=== PATIENT | male | born 1985 | race Two or more races ===

== ENCOUNTER 2017-09-02 22:07 | Emergency (ER) | payer SELFPAY ==
[~2017-09-02] VITALS: Ht 172.7 cm; Wt 77.1 kg
[~2017-09-02 22:07] MED LIST: ADDERAL20 MG ORAL
[2017-09-02 23:10] VITALS: BP 128/90
[2017-09-02] MEDS ORDERED: IBUPROFEN600 MG ORAL (23:13)
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
[2017-09-02 23:20] VITALS: BP 128/90
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
== END 2017-09-02 23:20 | disposition home or self-care (01) ==
LOC: EDBD 22:07 → EMR 22:19
DX: R42 Dizziness and giddiness (principal); S09.8XXA Other specified injuries of head, initial encounter; S10.91XA Abrasion of unspecified part of neck, initial encounter; Y04.2XXA Assault by strike against or bumped into by another person, initial encounter; Y92.89 Other specified places as the place of occurrence of the external cause
CPT/HCPCS: 70450; 99284

== ENCOUNTER 2017-09-29 12:13 | Emergency (ER) | payer SELFPAY ==
[~2017-09-29] VITALS: Ht 172.7 cm; Wt 77.1 kg
[~2017-09-29 12:13] MED LIST changes: +IBUPROFEN600 MG ORAL
[2017-09-29] MEDS ORDERED: NKM (12:24)
[2017-09-29 13:02] VITALS: BP 140/88
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
[2017-09-29] MEDS ORDERED: TYLENOL EXTRA500 MG ORAL (13:04)
[2017-09-29] MEDS ORDERED: Metoclopramide 10mg/2ml Inj IM ONE (13:30)
[2017-09-29 13:43] VITALS: BP 135/84
== END 2017-09-29 13:38 | disposition home or self-care (01) ==
LOC: EMR 12:40
DX: R51 Headache (principal); H53.8 Other visual disturbances; K08.89 Other specified disorders of teeth and supporting structures
CPT/HCPCS: 96372; 99283; J2765